=== PATIENT | female | born 1970 | race Two or more races ===

== ENCOUNTER 2022-05-07 05:49 | Day surgery (SDC) | payer OTHER ==
[~2022-05-07] VITALS: Ht 162.6 cm; Wt 86.6 kg
[~2022-05-07 05:49] MED LIST: AMBIEN10 MG PO; COZAAR25 MG PO; CYMBALTA30 MG PO; LYSTEDA650 MG PO; SYNTHROID200 MCG PO
== END 2022-05-07 11:25 | disposition home or self-care (01) ==
LOC: CIR.AMB 05:49
PROVIDERS: ATTEND Orthopaedic Surgery Hand Surgery
DX: G56.01 Carpal tunnel syndrome, right upper limb (principal); Z88.6 Allergy status to analgesic agent; Z86.16 Personal history of COVID-19; I10 Essential (primary) hypertension; E03.9 Hypothyroidism, unspecified

== ENCOUNTER 2024-03-09 05:41 | Day surgery (SDC) | payer OTHER ==
[2024-03-03 10:43] LABS: HEMATOCRIT 39.2 % (36.0-45.00); HEMOGLOBIN 13.5 g/dL (12.0-15.00); MEAN CELL VOLUME 88.5 fL (80.00-100.00); MEAN CORPUSCULAR HEMOGLOBIN 30.4 pg (27.00-32.0); MEAN CORPUSCULAR HGB CONC 34.4 g/dl (32.0-36.0); PH,URINE 6.5 (5.0-8.0); PLATELET COUNT 215 K/uL (150-450); RED BLOOD COUNT 4.42 M/uL (4.00-6.00); RED CELL DISTRIBUTION WIDTH 13.9 % (11.5-14.5); URINE APPEARANCE Clear; URINE BILIRRUBIN Negative (NEGATIVE); URINE BLOOD Negative; URINE COLOR Yellow; URINE GLUCOSE Negative (NEGATIVE); URINE LEUKOCYTE Small; URINE NITRATE Negative; URINE PROTEIN Negative (NEGATIVE); URINE UROBILINOGEN 0.2 E.U./dl
[2024-03-03 10:48] LABS: URINE BACTERIA 657.6 uL (0.0-1933); URINE EPITHELIAL CELLS 51.7 uL (0.0-38.8); URINE WBC 72.4 uL (0.0-23.2)
[2024-03-03 11:01] LABS: URINE RBC 0.6 uL (0.0-20.8)
[2024-03-03 11:14] LABS: INR 0.97; PARTIAL THROMBOPLASTIN TIME 27.9 SECONDS (22.0-34.0); PROTHROMBIN TIME 10.2 SECONDS (9.0-11.5)
[2024-03-03 11:25] LABS: ALBUMIN 3.8 gm/dL (3.4-5.0); BILIRUBIN TOTAL 0.64 mg/dL (0.3-1.2); CALCIUM 9.3 mg/dL (8.5-10.1); CREATININE SERUM 0.69 mg/dL (0.55-1.02); GLOBULINA 3.3 G/DL (2.4-3.5); POTASSIUM 4.43 mEq/L (3.5-5.1); TOTAL PROTEIN 7.1 gm/dL (6.4-8.2)
[~2024-03-09 05:41] MED LIST changes: +SIMVASTATIN10 MG
[2024-03-09] MEDS ORDERED: CEFAZOLIN SODIUM 1,000 MG VIAL IV ONE (08:30)
[2024-03-09] MEDS ORDERED: BUPIVACAINE HCL 30 ML VIAL IJ ONE (08:30)
== END 2024-03-09 11:30 | disposition home or self-care (01) ==
LOC: CIR.AMB 05:41
PROVIDERS: ATTEND Orthopaedic Surgery Hand Surgery
DX: G56.02 Carpal tunnel syndrome, left upper limb (principal); Z88.6 Allergy status to analgesic agent; F41.9 Anxiety disorder, unspecified; I10 Essential (primary) hypertension; M19.90 Unspecified osteoarthritis, unspecified site; M79.7 Fibromyalgia